=== PATIENT | male | born 1935 | race Caucasian/White ===

== ENCOUNTER 2019-07-23 10:39 | Inpatient (IN) | payer MEDICARE, OTHER ==
[~2019-07-23] VITALS: Ht 175.3 cm; Wt 55.3 kg
[2019-07-23] MEDS ORDERED: SODIUM CHLORIDE 0.9% 1,000 ML IV ONE ×2 (10:59→12:45)
[2019-07-23 11:26] LABS: BASOPHILS % 0.2 % (0.0-2.0); HEMATOCRIT. 45.1 % (42.0-52.0); HEMOGLOBIN. 15.2 g/dL (14.0-18.0); LYMPHOCYTES % 7.9 % (20.0-50.0); MEAN CORPUSCULAR HEMOGLOBIN 30.9 pg (28.0-32.0); MEAN CORPUSCULAR VOLUME 91.5 fL (80.0-94.0); MEAN PLATELET VOLUME 9.1 fl (7.4-10.4); MONOCYTES % 8.8 % (2.0-8.0); NEUTROPHILS % 83.1 % (40.0-76.0); PLATELET 405 x1000/uL (130-400); RED BLOOD CELL COUNT 4.93 mill/uL (4.7-6.1); RED CELL DISTRIBUTION WIDTH 13.1 % (11.6-14.6)
[2019-07-23 11:32] LABS: CHLORIDE 97 mEq/L (98-107)
[2019-07-23 11:35] LABS: ETHANOL BLOOD < 10 mg/dL
[2019-07-23 12:30] LABS: CLARITY URINE TURBID (CLEAR); COLOR URINE ORANGE (YELLOW); KETONES URINE NEGATIVE (NEGATIVE); LEUKOCYTE ESTERASE URINE 3+ (NEGATIVE); NITRITE URINE NEGATIVE (NEGATIVE); OCCULT BLOOD URINE 3+ (NEGATIVE); PH URINE 8.5 (4.5-8.0); PROTEIN URINE 3+ (NEGATIVE); SPECIFIC GRAVITY URINE 1.017 (1.005-1.030); UROBILINOGEN URINE 0.2 E.U./dL (0.2-1.0)
[2019-07-23 12:43] LABS: *AMPHETAMINES SCREEN URINE NEGATIVE (NEGATIVE)
[2019-07-23 12:44] LABS: *BARBITURATES SCREEN URINE NEGATIVE (NEGATIVE); *BENZODIAZEPINES SCREEN URINE NEGATIVE (NEGATIVE); CANNABINOID URINE SCREEN NEGATIVE (NEGATIVE); METHADONE URINE SCREEN NEGATIVE (NEGATIVE); OPIATES URINE SCREEN NEGATIVE (NEGATIVE); PHENCYCLIDINE URINE SCREEN NEGATIVE (NEGATIVE)
[2019-07-23] MEDS ORDERED: CEFTRIAXONE 1 G PREMIX 50 ML IV ONE ×2 (12:45→13:00)
[2019-07-23] MEDS ORDERED: ACETAMINOPHEN 325MG TABLET PO ONE (12:45)
[2019-07-23 12:47] LABS: *COCAINE SCREEN URINE NEGATIVE (NEGATIVE)
[2019-07-23] MEDS ORDERED: ASPIRIN 325MG EC TABLET PO ONE (13:15)
[2019-07-23] MEDS ORDERED: ONDANSETRON HCL 4MG/2ML INJ IV PRN (14:00)
[2019-07-23] MEDS ORDERED: ACETAMINOPHEN 325MG TABLET PO PRN (14:00)
[2019-07-23 20:45] VITALS: BP 130/94
[2019-07-23] MEDS: METOPROLOL TARTRATE 25MG TABLET PO SCH (21:29)
[2019-07-23] MEDS: DEXT 5%/0.45% NACL 1000ML 1,000 ML IV SCH (21:54)
[2019-07-23 22:00] VITALS: BP 136/81
[2019-07-23 23:57] VITALS: BP 137/87
[2019-07-24] VITALS (12 sets, daily range): BP systolic 108–158; BP diastolic 63–91
[2019-07-24] MEDS ORDERED: PIPERACILLIN/TAZOBACTAM 3.375 G in DEXT 5% WATER 100 ML IV SCH (02:15)
[2019-07-24] MEDS ORDERED: VANCOMYCIN 1 G PREMIX 200 ML IV NR (05:00)
[2019-07-24] MEDS: PIPERACILLIN/TAZOBACTAM 2.25 G in DEXTROSE 5% WATER 50 ML IV SCH ×3 (05:54→17:36)
[2019-07-24 06:24] LABS: BASOPHILS % 0.1 % (0.0-2.0); HEMATOCRIT. 41.1 % (42.0-52.0); LYMPHOCYTES % 10.2 % (20.0-50.0); MEAN CORPUSCULAR HEMOGLOBIN 30.8 pg (28.0-32.0); MEAN CORPUSCULAR VOLUME 90.7 fL (80.0-94.0); MONOCYTES % 7.1 % (2.0-8.0); NEUTROPHILS % 82.6 % (40.0-76.0); PLATELET 320 x1000/uL (130-400); RED BLOOD CELL COUNT 4.53 mill/uL (4.7-6.1)
[2019-07-24 06:41] LABS: CHLORIDE 106 mEq/L (98-107)
[2019-07-24] MEDS: ASPIRIN 81MG TABLET PO SCH (10:40)
[2019-07-24] MEDS: LEVOTHYROXINE SODIUM 50MCG TABLET PO SCH (10:40)
[2019-07-24] MEDS: DEXT 5%/0.45% NACL 1000ML 1,000 ML IV SCH ×3 (10:41→20:21)
[2019-07-24] MEDS: METOPROLOL TARTRATE 25MG TABLET PO SCH ×2 (10:47→20:39)
[2019-07-24] MEDS ORDERED: CEFTRIAXONE 1 G PREMIX 50 ML IV SCH (12:00)
[2019-07-24] MEDS: ENOXAPARIN 40MG/0.4ML SYR SUBCUT SCH (17:36)
[2019-07-24] MEDS: VANCOMYCIN 750 MG PREMIX 150 ML IV SCH (17:44)
[2019-07-24] MEDS ORDERED: VANCOMYCIN 1 G PREMIX 200 ML IV SCH (22:00)
[2019-07-25] VITALS (13 sets, daily range): BP systolic 102–163; BP diastolic 64–101
[2019-07-25] MEDS: PIPERACILLIN/TAZOBACTAM 2.25 G in DEXTROSE 5% WATER 50 ML IV SCH ×4 (00:53→17:49)
[2019-07-25] MEDS: FAMOTIDINE 20MG/2ML VIAL IV SCH ×2 (01:02→20:46)
[2019-07-25] MEDS: VANCOMYCIN 750 MG PREMIX 150 ML IV SCH ×2 (04:55→20:46)
[2019-07-25 05:46] LABS: HEMATOCRIT. 41.4 % (42.0-52.0); HEMOGLOBIN. 14.5 g/dL (14.0-18.0); LYMPHOCYTES % 11.6 % (20.0-50.0); MEAN CORPUSCULAR HEMOGLOBIN 31.5 pg (28.0-32.0); MEAN CORPUSCULAR VOLUME 90.1 fL (80.0-94.0); MEAN PLATELET VOLUME 8.8 fl (7.4-10.4); MONOCYTES % 6.4 % (2.0-8.0); PLATELET 332 x1000/uL (130-400); RED BLOOD CELL COUNT 4.59 mill/uL (4.7-6.1); RED CELL DISTRIBUTION WIDTH 12.7 % (11.6-14.6)
[2019-07-25 06:38] LABS: CHLORIDE 101 mEq/L (98-107)
[2019-07-25] MEDS: DEXT 5%/0.45% NACL 1000ML 1,000 ML IV SCH (06:43)
[2019-07-25] MEDS: ASPIRIN 81MG TABLET PO SCH (09:09)
[2019-07-25] MEDS: ENOXAPARIN 40MG/0.4ML SYR SUBCUT SCH (09:09)
[2019-07-25] MEDS: METOPROLOL TARTRATE 25MG TABLET PO SCH ×2 (09:09→20:46)
[2019-07-25] MEDS: LEVOTHYROXINE SODIUM 50MCG TABLET PO SCH (09:09)
[2019-07-25] MEDS ORDERED: POTASSIUM CHLORIDE 20MEQ TABLET SR PO NR (12:00)
[2019-07-25] MEDS: SODIUM CHLORIDE 0.9% 1,000 ML IV SCH (12:08)
[2019-07-25 15:55] LABS: INR 1.1; PROTHROMBIN TIME 11.5 sec (9.6-11.0)
[2019-07-25 16:02] LABS: T4 FREE 1.16 ng/dL (0.76-1.46)
[2019-07-25] MEDS ORDERED: IPRATROPIUM/ALBUTEROL 0.5-3(2.5)MG/3ML NEB HHN PRN (16:15)
[2019-07-25] MEDS ORDERED: HYDROCODONE/ACETAMINOPHEN 5/325MG TABLET PO PRN (16:15)
[2019-07-25 17:46] LABS: BG BASE EXCESS -3.7 mmol/L (-2.0-2.0); BG CARBOXYHEMOGLOBIN 0.3 % (0.5-1.5); BG DEOXYHEMOGLOBIN 1.9 % (0.0-5.0); BG FRACTION INSPIRED OXYGEN 21; BG HCO3 ACT 17.6 mmol/L (22.0-26.0); BG METHEMOGLOBIN 0.2 % (0.0-1.5); BG OXYGEN SATURATION 98.1 % (92.0-98.5); BG OXYHEMOGLOBIN 97.6 % (94.0-97.0); BG PCO2 23.5 mmHg (35.0-45.0); BG PH 7.493 (7.350-7.450); BG PO2 104.1 mmHg (75.0-100.0); BG SAMPLE SITE RIGHT RADIAL; BG TOTAL HEMOGLOBIN 13.8 g/dL (12.0-18.0); BG VENT MODE ROOM AIR
[2019-07-25] MEDS ORDERED: LACTULOSE 20G/30ML UDC PO PRN (21:00)
[2019-07-26] VITALS (12 sets, daily range): BP systolic 95–162; BP diastolic 54–104
[2019-07-26] MEDS: PIPERACILLIN/TAZOBACTAM 2.25 G in DEXTROSE 5% WATER 50 ML IV SCH ×5 (00:10→23:23)
[2019-07-26] MEDS: SODIUM CHLORIDE 0.9% 1,000 ML IV SCH ×3 (04:32→19:03)
[2019-07-26] MEDS: LORAZEPAM 2MG/ML CPJ IV PRN (06:12)
[2019-07-26 07:26] LABS: CHLORIDE 108 mEq/L (98-107)
[2019-07-26 07:36] LABS: BASOPHILS % 0.1 % (0.0-2.0); EOSINOPHILS % 0.3 % (0.0-5.0); HEMOGLOBIN. 14.9 g/dL (14.0-18.0); LYMPHOCYTES % 23.9 % (20.0-50.0); MEAN CORPUSCULAR HEMOGLOBIN 31.6 pg (28.0-32.0); MEAN CORPUSCULAR VOLUME 93.5 fL (80.0-94.0); MEAN PLATELET VOLUME 8.3 fl (7.4-10.4); NEUTROPHILS % 73.7 % (40.0-76.0); PLATELET 356 x1000/uL (130-400); RED BLOOD CELL COUNT 4.71 mill/uL (4.7-6.1); RED CELL DISTRIBUTION WIDTH 13.1 % (11.6-14.6)
[2019-07-26] MEDS: METOPROLOL TARTRATE 50MG TABLET PO SCH ×2 (09:00→20:49)
[2019-07-26] MEDS ORDERED: METOPROLOL TARTRATE 50MG TABLET PO SCH (09:00)
[2019-07-26] MEDS: ASPIRIN 81MG TABLET PO SCH (09:02)
[2019-07-26] MEDS: LEVOTHYROXINE SODIUM 50MCG TABLET PO SCH (09:02)
[2019-07-26] MEDS: ENOXAPARIN 40MG/0.4ML SYR SUBCUT SCH (09:03)
[2019-07-26] MEDS: VANCOMYCIN 750 MG PREMIX 150 ML IV SCH ×2 (09:04→20:48)
[2019-07-26] MEDS: FAMOTIDINE 20MG/2ML VIAL IV SCH (20:52)
[2019-07-27] VITALS (10 sets, daily range): BP systolic 126–179; BP diastolic 58–76
[2019-07-27] MEDS: PIPERACILLIN/TAZOBACTAM 2.25 G in DEXTROSE 5% WATER 50 ML IV SCH ×4 (05:33→23:45)
[2019-07-27 06:39] LABS: HEMATOCRIT. 36.6 % (42.0-52.0); HEMOGLOBIN. 12.3 g/dL (14.0-18.0); LYMPHOCYTES % 11.4 % (20.0-50.0); MEAN CORPUSCULAR VOLUME 91.8 fL (80.0-94.0); MEAN PLATELET VOLUME 8.2 fl (7.4-10.4); MONOCYTES % 9.3 % (2.0-8.0); NEUTROPHILS % 78.3 % (40.0-76.0); PLATELET 274 x1000/uL (130-400); RED BLOOD CELL COUNT 3.99 mill/uL (4.7-6.1); RED CELL DISTRIBUTION WIDTH 12.7 % (11.6-14.6)
[2019-07-27 07:22] LABS: CHLORIDE 111 mEq/L (98-107)
[2019-07-27] MEDS: LEVOTHYROXINE SODIUM 50MCG TABLET PO SCH (07:30)
[2019-07-27] MEDS: VANCOMYCIN 750 MG PREMIX 150 ML IV SCH ×2 (08:25→21:01)
[2019-07-27] MEDS: ENOXAPARIN 40MG/0.4ML SYR SUBCUT SCH (08:25)
[2019-07-27] MEDS: ASPIRIN 81MG TABLET PO SCH (08:27)
[2019-07-27] MEDS: METOPROLOL TARTRATE 50MG TABLET PO SCH ×2 (08:27→21:00)
[2019-07-27] MEDS: LORAZEPAM 2MG/ML CPJ IV PRN (17:27)
[2019-07-27] MEDS ORDERED: POTASSIUM CHLORIDE INJ 40 MEQ in DEXT 5% WATER 500 ML IV NR (18:00)
[2019-07-27] MEDS: DIPHENHYDRAMINE 50MG/ML VIAL IV PRN (18:39)
[2019-07-27] MEDS: HYDRALAZINE 20MG/ML VIAL IV PRN (18:43)
[2019-07-27] MEDS: SODIUM CHLORIDE 0.9% 1,000 ML IV SCH (18:44)
[2019-07-27] MEDS: LEVOFLOXACIN 500MG PREMIX 100 ML IV SCH (21:01)
[2019-07-27] MEDS: FAMOTIDINE 20MG/2ML VIAL IV SCH (21:01)
[2019-07-28] VITALS (8 sets, daily range): BP systolic 104–150; BP diastolic 66–102
[2019-07-28] MEDS ORDERED: DILTIAZEM HCL 5MG/ML 5ML VIAL IV NR (02:30)
[2019-07-28] MEDS: HYDRALAZINE 20MG/ML VIAL IV PRN (04:21)
[2019-07-28] MEDS: DIPHENHYDRAMINE 50MG/ML VIAL IV PRN (04:28)
[2019-07-28] MEDS: DILTIAZEM HCL 60MG TABLET PO SCH ×4 (06:00→23:39)
[2019-07-28] MEDS: PIPERACILLIN/TAZOBACTAM 2.25 G in DEXTROSE 5% WATER 50 ML IV SCH ×2 (06:28→12:23)
[2019-07-28] MEDS: ENOXAPARIN 40MG/0.4ML SYR SUBCUT SCH (09:08)
[2019-07-28] MEDS: VANCOMYCIN 750 MG PREMIX 150 ML IV SCH (09:08)
[2019-07-28] MEDS: ASPIRIN 81MG TABLET PO SCH (09:09)
[2019-07-28] MEDS: LEVOTHYROXINE SODIUM 50MCG TABLET PO SCH (09:09)
[2019-07-28] MEDS: METOPROLOL TARTRATE 50MG TABLET PO SCH ×2 (09:09→23:37)
[2019-07-28 09:15] LABS: BASOPHILS % 0.1 % (0.0-2.0); EOSINOPHILS % 0.3 % (0.0-5.0); HEMATOCRIT. 38.6 % (42.0-52.0); HEMOGLOBIN. 13.3 g/dL (14.0-18.0); LYMPHOCYTES % 10.4 % (20.0-50.0); MEAN CORPUSCULAR HEMOGLOBIN 30.8 pg (28.0-32.0); MEAN CORPUSCULAR VOLUME 89.7 fL (80.0-94.0); MEAN PLATELET VOLUME 7.5 fl (7.4-10.4); NEUTROPHILS % 80.2 % (40.0-76.0); PLATELET 291 x1000/uL (130-400); RED CELL DISTRIBUTION WIDTH 12.7 % (11.6-14.6)
[2019-07-28 09:23] LABS: CHLORIDE 106 mEq/L (98-107)
[2019-07-28] MEDS: SODIUM CHLORIDE 0.9% 1,000 ML IV SCH ×2 (11:03→23:36)
[2019-07-28] MEDS: LORAZEPAM 2MG/ML CPJ IV PRN (12:24)
[2019-07-28] MEDS ORDERED: POTASSIUM CHLORIDE 20MEQ TABLET SR PO NR (14:30)
[2019-07-28] MEDS: RISPERIDONE 0.25MG TABLET PO SCH (18:20)
[2019-07-28] MEDS: FAMOTIDINE 20MG/2ML VIAL IV SCH (23:36)
[2019-07-28] MEDS: LEVOFLOXACIN 500MG PREMIX 100 ML IV SCH (23:39)
[2019-07-29] VITALS (12 sets, daily range): BP systolic 98–123; BP diastolic 51–71
[2019-07-29] MEDS: DILTIAZEM HCL 60MG TABLET PO SCH ×4 (05:26→23:50)
[2019-07-29] MEDS: SODIUM CHLORIDE 0.9% 1,000 ML IV SCH ×2 (07:03→17:03)
[2019-07-29 07:16] LABS: HEMATOCRIT. 32.4 % (42.0-52.0); HEMOGLOBIN. 11.5 g/dL (14.0-18.0); MEAN CORPUSCULAR HEMOGLOBIN 32.1 pg (28.0-32.0); MEAN CORPUSCULAR VOLUME 90.9 fL (80.0-94.0); MEAN PLATELET VOLUME 8.1 fl (7.4-10.4); PLATELET 169 x1000/uL (130-400); RED BLOOD CELL COUNT 3.57 mill/uL (4.7-6.1); RED CELL DISTRIBUTION WIDTH 13.3 % (11.6-14.6)
[2019-07-29] MEDS: METOPROLOL TARTRATE 50MG TABLET PO SCH ×2 (09:00→21:09)
[2019-07-29] MEDS: ENOXAPARIN 40MG/0.4ML SYR SUBCUT SCH (10:24)
[2019-07-29] MEDS: RISPERIDONE 0.25MG TABLET PO SCH (10:24)
[2019-07-29] MEDS: LEVOTHYROXINE SODIUM 50MCG TABLET PO SCH (10:25)
[2019-07-29] MEDS: ASPIRIN 81MG TABLET PO SCH (10:25)
[2019-07-29 17:07] LABS: PLATELET ESTIMATE NORMAL
[2019-07-29] MEDS: FAMOTIDINE 20MG/2ML VIAL IV SCH (21:08)
[2019-07-29] MEDS: LEVOFLOXACIN 500MG PREMIX 100 ML IV SCH (21:08)
[2019-07-29] MEDS: LORAZEPAM 2MG/ML CPJ IV PRN (22:39)
[2019-07-30] VITALS (9 sets, daily range): BP systolic 127–153; BP diastolic 76–101
[2019-07-30] MEDS: SODIUM CHLORIDE 0.9% 1,000 ML IV SCH (03:03)
[2019-07-30] MEDS: DIPHENHYDRAMINE 50MG/ML VIAL IV PRN (04:19)
[2019-07-30] MEDS: DILTIAZEM HCL 60MG TABLET PO SCH ×3 (05:17→18:02)
[2019-07-30 08:07] LABS: HEMATOCRIT. 34.9 % (42.0-52.0); HEMOGLOBIN. 11.8 g/dL (14.0-18.0); MEAN CORPUSCULAR HEMOGLOBIN 30.4 pg (28.0-32.0); MEAN CORPUSCULAR VOLUME 89.9 fL (80.0-94.0); MEAN PLATELET VOLUME 8.4 fl (7.4-10.4); PLATELET 168 x1000/uL (130-400); RED BLOOD CELL COUNT 3.88 mill/uL (4.7-6.1); RED CELL DISTRIBUTION WIDTH 13.2 % (11.6-14.6)
[2019-07-30 08:34] LABS: CHLORIDE 113 mEq/L (98-107)
[2019-07-30] MEDS: LEVOTHYROXINE SODIUM 50MCG TABLET PO SCH (08:41)
[2019-07-30] MEDS: METOPROLOL TARTRATE 50MG TABLET PO SCH ×2 (08:44→20:43)
[2019-07-30] MEDS: ASPIRIN 81MG TABLET PO SCH (08:45)
[2019-07-30] MEDS: ENOXAPARIN 40MG/0.4ML SYR SUBCUT SCH (08:45)
[2019-07-30] MEDS: RISPERIDONE 0.25MG TABLET PO SCH (09:14)
[2019-07-30] MEDS ORDERED: POTASSIUM CHLORIDE INJ 40 MEQ in DEXT 5% WATER 250 ML IV SCH (11:00)
[2019-07-30] MEDS ORDERED: MAGNESIUM 2 G PREMIX 50 ML IV NR (14:30)
[2019-07-30] MEDS ORDERED: POTASSIUM CHLORIDE 20MEQ TABLET SR PO NR (15:00)
[2019-07-30 15:16] LABS: PLATELET ESTIMATE NORMAL
[2019-07-30] MEDS ORDERED: CLONIDINE 0.1MG TABLET PO PRN (15:30)
[2019-07-30] MEDS ORDERED: DILTIAZEM HCL 5MG/ML 5ML VIAL IV ONE (15:30)
[2019-07-30] MEDS ORDERED: DILTIAZEM HCL 5MG/ML 10ML VIAL IV ONE (16:15)
[2019-07-30] MEDS: FAMOTIDINE 20MG/2ML VIAL IV SCH (20:42)
[2019-07-30] MEDS: LEVOFLOXACIN 500MG PREMIX 100 ML IV SCH (20:42)
[2019-07-31] VITALS (10 sets, daily range): BP systolic 101–150; BP diastolic 57–93
[2019-07-31 01:28] LABS: CHLORIDE 112 mEq/L (98-107)
[2019-07-31] MEDS: DIPHENHYDRAMINE 50MG/ML VIAL IV PRN (01:33)
[2019-07-31] MEDS: DILTIAZEM HCL 60MG TABLET PO SCH ×4 (01:33→18:00)
[2019-07-31] MEDS ORDERED: KCL 20 MEQ/100 ML IV ONE (02:00)
[2019-07-31] MEDS ORDERED: POTASSIUM CHLORIDE INJ 60 MEQ in DEXT 5% WATER 500 ML IV NR (04:00)
[2019-07-31] MEDS: SODIUM CHLORIDE 0.9% 1,000 ML IV SCH ×2 (05:57→09:16)
[2019-07-31] MEDS: RISPERIDONE 0.25MG TABLET PO SCH (09:15)
[2019-07-31] MEDS: ENOXAPARIN 40MG/0.4ML SYR SUBCUT SCH (09:15)
[2019-07-31] MEDS: METOPROLOL TARTRATE 50MG TABLET PO SCH ×2 (09:16→21:00)
[2019-07-31] MEDS: LEVOTHYROXINE SODIUM 50MCG TABLET PO SCH (09:16)
[2019-07-31] MEDS: ASPIRIN 81MG TABLET PO SCH (09:16)
[2019-07-31 10:48] LABS: CHLORIDE 109 mEq/L (98-107)
[2019-07-31] MEDS: LEVOFLOXACIN 500MG PREMIX 100 ML IV SCH (21:43)
[2019-07-31] MEDS: FAMOTIDINE 20MG/2ML VIAL IV SCH (21:43)
[2019-08-01] VITALS (10 sets, daily range): BP systolic 101–158; BP diastolic 64–97
[2019-08-01] MEDS: SODIUM CHLORIDE 0.9% 1,000 ML IV SCH ×3 (04:12→15:12)
[2019-08-01] MEDS: DILTIAZEM HCL 60MG TABLET PO SCH ×4 (05:09→18:38)
[2019-08-01 05:39] LABS: CHLORIDE 108 mEq/L (98-107)
[2019-08-01 05:43] LABS: BASOPHILS % 0.1 % (0.0-2.0); EOSINOPHILS % 1.4 % (0.0-5.0); HEMATOCRIT. 32.3 % (42.0-52.0); HEMOGLOBIN. 10.9 g/dL (14.0-18.0); LYMPHOCYTES % 12.9 % (20.0-50.0); MEAN CORPUSCULAR HEMOGLOBIN 30.5 pg (28.0-32.0); MEAN CORPUSCULAR VOLUME 90.2 fL (80.0-94.0); MEAN PLATELET VOLUME 8.5 fl (7.4-10.4); MONOCYTES % 4.6 % (2.0-8.0); PLATELET 177 x1000/uL (130-400); RED BLOOD CELL COUNT 3.58 mill/uL (4.7-6.1)
[2019-08-01 06:06] LABS: VITAMIN B12 SERUM 454 pg/mL (211-911)
[2019-08-01] MEDS: LEVOTHYROXINE SODIUM 50MCG TABLET PO SCH (06:35)
[2019-08-01] MEDS ORDERED: DEXT 5% WATER + KCL 20MEQ/L 1,000 ML IV ONE (07:30)
[2019-08-01] MEDS ORDERED: POTASSIUM CHLORIDE INJ 60 MEQ in DEXT 5% WATER 500 ML IV NR (08:00)
[2019-08-01] MEDS: ASPIRIN 81MG TABLET PO SCH (10:16)
[2019-08-01] MEDS: RISPERIDONE 0.25MG TABLET PO SCH (10:17)
[2019-08-01] MEDS: ENOXAPARIN 40MG/0.4ML SYR SUBCUT SCH (10:17)
[2019-08-01] MEDS: METOPROLOL TARTRATE 50MG TABLET PO SCH ×2 (10:17→20:08)
[2019-08-01] MEDS: LORAZEPAM 2MG/ML CPJ IV PRN (16:54)
[2019-08-01] MEDS: DIPHENHYDRAMINE 50MG/ML VIAL IV PRN (16:55)
[2019-08-01] MEDS: FAMOTIDINE 20MG/2ML VIAL IV SCH (20:08)
[2019-08-01] MEDS: LEVOFLOXACIN 500MG PREMIX 100 ML IV SCH (20:13)
[2019-08-02] VITALS (12 sets, daily range): BP systolic 114–160; BP diastolic 60–91
[2019-08-02] MEDS: DILTIAZEM HCL 60MG TABLET PO SCH ×4 (00:14→18:35)
[2019-08-02] MEDS: SODIUM CHLORIDE 0.9% 1,000 ML IV SCH ×3 (06:01→10:20)
[2019-08-02] MEDS: DIPHENHYDRAMINE 50MG/ML VIAL IV PRN ×2 (06:02→22:03)
[2019-08-02] MEDS: LORAZEPAM 2MG/ML CPJ IV PRN ×2 (06:02→20:50)
[2019-08-02 06:57] LABS: BASOPHILS % 0.2 % (0.0-2.0); EOSINOPHILS % 1.4 % (0.0-5.0); HEMATOCRIT. 35.7 % (42.0-52.0); HEMOGLOBIN. 12.3 g/dL (14.0-18.0); LYMPHOCYTES % 18.1 % (20.0-50.0); MEAN CORPUSCULAR HEMOGLOBIN 30.9 pg (28.0-32.0); MEAN CORPUSCULAR VOLUME 89.7 fL (80.0-94.0); MEAN PLATELET VOLUME 8.4 fl (7.4-10.4); MONOCYTES % 5.6 % (2.0-8.0); NEUTROPHILS % 74.7 % (40.0-76.0); PLATELET 228 x1000/uL (130-400); RED BLOOD CELL COUNT 3.98 mill/uL (4.7-6.1)
[2019-08-02 06:59] LABS: CHLORIDE 106 mEq/L (98-107)
[2019-08-02] MEDS: METOPROLOL TARTRATE 50MG TABLET PO SCH ×2 (09:00→20:50)
[2019-08-02] MEDS: RISPERIDONE 0.25MG TABLET PO SCH (10:18)
[2019-08-02] MEDS: ENOXAPARIN 40MG/0.4ML SYR SUBCUT SCH (10:18)
[2019-08-02] MEDS: ASPIRIN 81MG TABLET PO SCH (10:19)
[2019-08-02] MEDS: LEVOTHYROXINE SODIUM 50MCG TABLET PO SCH (10:19)
[2019-08-02] MEDS: FAMOTIDINE 20MG/2ML VIAL IV SCH (20:49)
[2019-08-02] MEDS: LEVOFLOXACIN 500MG PREMIX 100 ML IV SCH (20:49)
[2019-08-03] VITALS (7 sets, daily range): BP systolic 92–162; BP diastolic 63–100
[2019-08-03] MEDS: DILTIAZEM HCL 60MG TABLET PO SCH ×5 (00:14→18:48)
[2019-08-03] MEDS: LEVOTHYROXINE SODIUM 50MCG TABLET PO SCH (07:47)
[2019-08-03] MEDS: SODIUM CHLORIDE 0.9% 1,000 ML IV SCH (07:48)
[2019-08-03] MEDS: RISPERIDONE 0.25MG TABLET PO SCH (08:52)
[2019-08-03] MEDS: ASPIRIN 81MG TABLET PO SCH (08:52)
[2019-08-03] MEDS: METOPROLOL TARTRATE 50MG TABLET PO SCH (08:52)
[2019-08-03] MEDS: ENOXAPARIN 40MG/0.4ML SYR SUBCUT SCH (08:53)
[2019-08-03] MEDS ORDERED: POTASSIUM CHLORIDE 20MEQ TABLET SR PO NR (15:15)
[2019-08-04] MEDS ORDERED: ENOXAPARIN 30MG/0.3ML SYR SUBCUT SCH (09:00)
== END 2019-08-03 21:04 | DRG 871 ==
LOC: EDBD 10:39 → ER 11:02 → 5EST 13:42 → EDBEDREQSVC 14:05 → EDBEDREQ 14:05 → ENRESERV 19:47
PROVIDERS: ADMIT Internal Medicine; ATTEND Internal Medicine
DX: A41.51 Sepsis due to Escherichia coli [E. coli] (principal); G93.41 Metabolic encephalopathy; E44.1 Mild protein-calorie malnutrition; N39.0 Urinary tract infection, site not specified; E87.1 Hypo-osmolality and hyponatremia; N13.8 Other obstructive and reflux uropathy; N13.6 Pyonephrosis; Z68.1 Body mass index [BMI] 19.9 or less, adult; N17.9 Acute kidney failure, unspecified; T83.028A Displacement of other urinary catheter, initial encounter; A41.59 Other Gram-negative sepsis; A41.1 Sepsis due to other specified staphylococcus; N32.3 Diverticulum of bladder; I49.8 Other specified cardiac arrhythmias; I10 Essential (primary) hypertension; E87.8 Other disorders of electrolyte and fluid balance, not elsewhere classified; E87.6 Hypokalemia; Y84.6 Urinary catheterization as the cause of abnormal reaction of the patient, or of later complication, without mention of misadventure at the time of the procedure; Y92.238 Other place in hospital as the place of occurrence of the external cause; E03.9 Hypothyroidism, unspecified; E83.42 Hypomagnesemia; F03.90 Unspecified dementia, unspecified severity, without behavioral disturbance, psychotic disturbance, mood disturbance, and anxiety; N40.1 Benign prostatic hyperplasia with lower urinary tract symptoms; K57.30 Diverticulosis of large intestine without perforation or abscess without bleeding; N32.0 Bladder-neck obstruction; I49.3 Ventricular premature depolarization; Z78.1 Physical restraint status; Z87.440 Personal history of urinary (tract) infections; Z86.73 Personal history of transient ischemic attack (TIA), and cerebral infarction without residual deficits
CPT/HCPCS: 36415; 36600; 71045; 74176; 76857; 80048; 80053; 80076; 80202; 80305; 80307; 80320; 80329; 81003; 82140; 82375; 82607; 82805; 82962; 83605; 83735; 83880; 84153; 84439; 84443; 84481; 84484; 85025; 87077; 87186; 92610; 93005; 93306; 93923; 93970; 96365; 96367; 97110; 97162; 97530; 99291; A6261; J0360; J0696; J1200; J1650; J1956; J2060; J2405; J2543; J3370; J3475; J3480; J3490; J7030; J7060; A4315; G0103; G0480